=== PATIENT | female | born 1990 | race Caucasian/White ===

== ENCOUNTER 2017-03-05 06:44 | Emergency (ER) | payer SELFPAY ==
[~2017-03-05] VITALS: Ht 165.1 cm; Wt 61.2 kg
--- NOTE | 2017-03-05 06:55 | NUR ---
To bed 18 a 26 yo female patient bb self c/o vaginal bleeding with urine, abd pain x 1 day. . Unknown LMP. Placed patient on monitor. gowned. comfort measures rendered.
[2017-03-05 07:34] LABS: BASOPHILS # (AUTO) 0.1 /CMM (0.0-0.2); EOSINOPHILS # (AUTO) 0.2 /CMM (0.0-0.7); EOSINOPHILS % (AUTO) 1.6 % (0.0-6.0); HEMATOCRIT 36 % (33-45); HEMOGLOBIN 11.9 g/dL (11.5-14.8); LYMPHOCYTES # (AUTO) 2.5 /CMM (0.8-4.8); MEAN CORPUSCULAR HEMOGLOBIN 26 PG (26.0-33.0); MEAN CORPUSCULAR HGB CONC 33 g/dl (31.0-36.0); MEAN CORPUSCULAR VOLUME 78 fL (82-100); MONOCYTES % (AUTO) 6.8 % (2.0-12.0); NEUTROPHILS # (AUTO) 10.9 /CMM (1.8-8.9); NEUTROPHILS % (AUTO) 73.6 % (43.0-81.0); PLATELET COUNT (AUTO) 63 /CMM (150-450); RDW COEFFICIENT OF VARIATION 19.3 (11.5-15.0); WHITE BLOOD COUNT (AUTO) 14.8 K/uL (4.3-11.0)
[2017-03-05 07:39] LABS: APPEARANCE,URINE CLOUDY (CLEAR); BILIRUBIN,URINE 2+ (NEGATIVE); BLOOD, URINE 3+ Ery/uL (NEGATIVE); COLOR,URINE AMBER (YELLOW); KETONES,URINE 1+ (NEGATIVE); LEUKOCYTE ESTERASE ,URINE 1+ (NEGATIVE); NITRITE, URINE POSITIVE (NEGATIVE); PH,URINE 6.5 (5.0-8.0); PROTEIN,URINE 3+ mg/dl (NEGATIVE); UGLUCOSE TRACE mg/dL (NEGATIVE)
[2017-03-05 07:45] LABS: CALCIUM, SERUM 7.9 mg/dL (8.5-10.1); CREATININE 1.1 mg/dL (0.6-1.3); POTASSIUM 4.1 mmol/L (3.5-5.1)
[2017-03-05 07:58] LABS: BACTERIA,URINE Few /HPF (None Seen); RBC,URINE TOO NUMEROUS TO COUN /HPF (0-2); SQUAMOUS EPITHELIAL CELL,UR Few /HPF (None Seen)
--- NOTE | 2017-03-05 08:00 | NUR ---
DARIAN AT BS.
[2017-03-05 08:38] LABS: ALBUMIN 1.2 g/dL (3.4-5.0); BILIRUBIN,DIRECT 0.1 mg/dL (0.0-0.2); BILIRUBIN,TOTAL 0.6 mg/dL (0.2-1.0); TOTAL PROTEIN, SERUM 5.6 g/dL (6.4-8.2)
[2017-03-05 08:56] LABS: LYMPHOCYTES % (MANUAL) 15 % (16-48); MONOCYTES % (MANUAL) 12 % (0-11.0); NEUTROPHILS % (MANUAL) 73 (42-76)
[2017-03-05] MEDS: LABETALOL 20 MG/4 ML VIAL IV ONE (09:00)
[2017-03-05 09:11] LABS: INR 0.86 (0.87-1.13)
[2017-03-05] MEDS: LABETALOL HCL IV 100MG VIAL IV ONE ×2 (09:19→09:54)
[2017-03-05] MEDS: Magnesium 1GM/D5W 100ML PREMIX 100 ML IV SCH (09:21)
--- NOTE | 2017-03-05 09:29 | NUR ---
CALLED [facility] TO INITIATE HIGHER LEVEL OF CARE TRANSFER
--- NOTE | 2017-03-05 09:53 | NUR ---
CALLED LABORIST AT [facility] FOR HIGHER LEVEL OF CARE TRANSFER
[2017-03-05 09:54] VITALS: BP 162/122
--- NOTE | 2017-03-05 10:03 | NUR ---
CALLED [facility] FOR TRANSPORT, ETA IS 1HOUR
--- NOTE | 2017-03-05 10:10 | NUR ---
CALLED [facility] FOR TRANSPORT, ETA 40 MIN
--- NOTE | 2017-03-05 10:30 | NUR ---
DR HARVEY AT BEDSIDE TO REEVALUATE PT
[2017-03-05] MEDS: BETA ACET/BET NA PHOS MDV 6 MG/ML VIAL IM STA (10:37)
--- NOTE | 2017-03-05 11:00 | NUR ---
REPORT GIVEN TO [facility] FOR TRANSPORT TO [facility] &
[2017-03-05] MEDS: Magnesium 1GM/D5W 100ML PREMIX 100 ML IV ONE (12:43)
== END 2017-03-05 18:52 | disposition short-term general hospital (02) ==
LOC: ER 06:47
DX: O14.13 Severe pre-eclampsia, third trimester (principal); O46.8X3 Other antepartum hemorrhage, third trimester; O46.003 Antepartum hemorrhage with coagulation defect, unspecified, third trimester; O12.13 Gestational proteinuria, third trimester; D69.6 Thrombocytopenia, unspecified; R82.71 Bacteriuria; O16.3 Unspecified maternal hypertension, third trimester; Z3A.27 27 weeks gestation of pregnancy
CPT/HCPCS: 36415; 76856-TC; 80048-TC; 80076-TC; 81000-TC; 83615-TC; 84550-TC; 84702-TC; 85025-TC; 85730-TC; 87086-TC; A4606; G0480; J0702; Z7610